=== PATIENT | male | born 1930 | race Caucasian/White ===

== ENCOUNTER 2016-11-29 04:40 | Emergency (ER) | payer MEDICARE ==
[2016-11-29] MEDS ORDERED: SODIUM CHLORIDE 0.9% 1000ML 1,000 ML ONE (04:52)
[2016-11-29] MEDS ORDERED: ONDANSETRON INJ 4 MG/2 ML VIAL ONE (04:55)
[2016-11-29] MEDS ORDERED: ONDANSETRON INJ 4 MG/2 ML VIAL IV ONE (04:55)
[2016-11-29] MEDS ORDERED: SODIUM CHLORIDE 0.9% 1000ML 1,000 ML IVS ONE ×2 (04:58→05:17)
[2016-11-29] MEDS ORDERED: MORPHINE SULFATE INJ 10 MG/ML VIAL ONE (05:01)
[2016-11-29] MEDS ORDERED: MORPHINE SULFATE INJ 10 MG/ML VIAL IV ONE ×2 (05:01→08:27)
[2016-11-29] MEDS ORDERED: NITROGLYCERIN 0.4 MG 25 EA TAB SL ONE ×2 (05:05)
[2016-11-29] MEDS ORDERED: KETOROLAC TROMETHAMINE INJ 30 MG/ML VIAL ONE (05:10)
--- NOTE | 2016-11-29 05:12 | RAD ---
Procedure: XR CHEST 1 VIEW Exam Date: 11/29/2016 Ordering Provider: Cornelia Zaldivar Clinical Indication: chest pain Comparison: None Findings: Cardiac silhouette: Enlarged Pulmonary vasculature : Central vascular congestion without wayne pulmonary edema. Mediastinal contour: Suboptimally evaluated due to patient rotation. Aortic contour: Tortuous Focal lung consolidation: Left basilar atelectasis and/or infiltrate. Pleural effusion: No large pleural effusions. Pneumothorax: None Acute bony or soft tissue abnormality: None Impression: 1. Left basilar atelectasis and/or infiltrate. Electronically signed by: Jacky Harden MD 11/29/2016 5:10 AM CDT
[2016-11-29] MEDS ORDERED: KETOROLAC TROMETHAMINE INJ 30 MG/ML VIAL IV ONE (05:23)
--- NOTE | 2016-11-29 05:29 | ED.PDOC ---
History of Present Illness - General Source: patient, RN notes reviewed, Vital Signs reviewed, EMS Exam Limitations: no limitations - History of Present Illness Initial Comments: Patient comes in via EMS with c/o the worst chest pain he has ever had in the center of his chest. He can't really give a description of the pain but it is worse with breathing. Reports pain started @ ~03:30 today and got so severe he called EMS. + SOB and nausea. Pain does go through to his back. EMS gave SLNTG X 1 but his BP dropped into the 90's so he was given Morphine 2mg IV. On arrival to the ER he reports his pain as 8/10. BP dropped to 87/55 so he was given a 1L NS bolus. BP rebounded to 100/53 and 5 minutes further into the bolus BP was 116/73. Patient c/o that pain was getting worse again and that he could not breath because the pain was so bad. He was given another 2mg of Morphine IV w/o improvement and then a second SLNTG again w/o improvement. BP dropped to 103/68 so he was given Toradol 30mg IV and pain improved, BP 110/71. He is currently resting comfortably. Patient reports he has never been to the doctor in his life, has no known medical problems and takes no medications. He did smoke for >60 years but quit 8 years ago. Later her reports he did see a doctor this past January, does not remember who, and was told to lose weight. Since then he has lost ~ 30#'s. Timing/Duration: 1-3 hours Severity/Quality: severe, other - unable to quantify Location: substernal Chest Pain Radiation: back Activities at Onset: rest Prior Chest Pain/Cardiac Workup: no prior chest pain, no prior cardiac workup Improving Factors: nothing Worsening Factors: other - deep breathing Nitro Today/Relief: 0.4 mg x 2, provided by EMS, provided by ED, no relief Aspirin Treatment Today: 81 mg x 4, provided by EMS Associated Symptoms: back pain, nausea/vomiting, shortness of breath <Cornelia Zaldivar - Last Filed: 11/29/16 07:21> <Rudolph Luong - Last Filed: 11/29/16 08:02> - General Chief Complaint: Chest Pain/TN Stated Complaint: Chest pain Time Seen by Provider: 11/29/16 05:17 - History of Present Illness Allergies/Adverse Reactions: Allergies NO KNOWN ALLERGY Allergy (Verified 11/29/16 04:44) Home Medications: Ambulatory Orders NK [NK] 11/29/16 Review of Systems - Review of Systems Constitutional: States: diaphoresis. Denies: chills, fever, malaise, weakness EENTM: States: no symptoms reported Respiratory: States: see HPI, other - pain with breathing. Denies: cough, short of breath Cardiology: States: chest pain. Denies: edema, palpitations, syncope Gastrointestinal/Abdominal: States: nausea. Denies: abdominal pain, vomiting Musculoskeletal: States: back pain Skin: States: no symptoms reported Neurological: States: no symptoms reported All other Systems: No Change from Baseline <Cornelia Zaldivar - Last Filed: 11/29/16 07:21> Past Medical History (General) - Patient Medical History Hx Seizures: No Hx Stroke: No Hx Dementia: No Hx Asthma: No Hx of COPD: No Hx Cardiac Disorders: No Hx Congestive Heart Failure: No Hx Pacemaker: No Hx Hypertension: No Hx Thyroid Disease: No Hx Diabetes: No Hx Gastroesophageal Reflux: No Hx Renal Disease: No Hx Cancer: No Hx of HIV: No Hx Hepatitis C: No Hx MRSA: No Surgical History: no surgical history - Vaccination History Hx Tetanus, Diphtheria Vaccination: No Hx Influenza Vaccination: No Hx Pneumococcal Vaccination: No Immunizations Up to Date: No - Social History Hx Tobacco Use: Yes Hx Chewing Tobacco Use: No Hx Alcohol Use: Yes Hx Substance Use: No Hx Substance Use Treatment: No Hx Depression: No Feels Threatened In Home Enviroment: No Feels Threatened In a Relationship: No Hx Physical Abuse: No Hx Emotional Abuse: No Hx Suspected Abuse: No <Cornelia Zaldivar - Last Filed: 11/29/16 07:21> Family Medical History - Family History Mother Family History: Unknown Living Status: <Cornelia Zaldivar Last Filed: 11/29/16 07:21> Physical Exam - Physical Exam General Appearance: Alert, Obvious distress, Unkempt Neck: non-tender, full range of motion, supple, normal inspection Respiratory: chest non-tender, no respiratory distress, no accessory muscle use , crackles - LLL, rales - LLL Cardiovascular/Chest: normal peripheral pulses, regular rate, rhythm, no edema, no gallop, no JVD, no murmur Peripheral Pulses: radial,right: 2+, radial,left: 2+, dorsalis pedis,right: 2+, dorsalis pedis,left: 2+ Gastrointestinal/Abdominal: normal bowel sounds, non tender, soft, no organomegaly, no pulsatile mass Extremity: non-tender, normal inspection, no pedal edema Neurologic: alert, normal mood/affect, oriented x 3 Skin Exam: normal color, warm/dry <MirandajasmyneCornelia - Last Filed: 11/29/16 07:21> Progress - Progress Progress: 11/29/16 05:38 D-Dimer >6000, will get CTA of chest. Patient still reporting CP 8/10 but appears more comfortable and is breathing better. BP 89/67. 11/29/16 05:45 Initial set of Cardiac Enzymes are normal. 11/29/16 07:23 Discussed W/ Dr. Lafleur, Cardiothoracic Surgeon @ [facility] - can't accept patient Spoke with Dr. Escobar, Cardiothorachic Surgeon @ [facility] - pt needs to go to [facility]. Spoke to Dr. Laboy, ER, who accepted patient. - Results/Orders Results/Orders: Laboratory Tests 11/29/16 11/29/16 11/29/16 04:20 04:22 06:48 WBC 9.8 RBC 4.32 L Hgb 12.6 L Hct 38.7 L MCV 89.7 MCH 29.1 MCHC 32.6 L RDW 15.1 H Plt Count 192 MPV 7.6 Absolute Neuts (auto) 5.00 Absolute Lymphs (auto) 3.20 Absolute Monos (auto) 0.80 Absolute Eos (auto) 0.40 Absolute Basos (auto) 0.20 H Neutrophils % 51.7 Lymphocytes % 33.0 Monocytes % 8.4 Eosinophils % 4.4 Basophils % 2.5 H PT 12.6 H INR 1.120 PTT (SP) 26.7 D-Dimer, Quantitative 6159 H* Sodium 143 Potassium 3.5 L Chloride 107 Carbon Dioxide 25 Anion Gap 14.5 BUN 14 Creatinine 1.01 BUN/Creatinine Ratio 13.9 Random Glucose 166 H Serum Osmolality 289.2 Calcium 8.8 Magnesium 1.9 Creatine Kinase 42 21 L D CK-MB (CK-2) 2.0 1.4 CK-MB (CK-2) % Not Reportable Not Reportable Troponin I < 0.02 < 0.02 11/29/16 07:10 WBC 12.2 H RBC 3.47 L Hgb 10.1 L Hct 31.4 L MCV 90.5 MCH 29.1 MCHC 32.1 L RDW 15.6 H Plt Count 137 MPV 7.1 L Absolute Neuts (auto) 10.20 H Absolute Lymphs (auto) 0.90 L Absolute Monos (auto) 0.90 H Absolute Eos (auto) 0.10 Absolute Basos (auto) 0.10 Neutrophils % 83.6 H Lymphocytes % 7.2 L Monocytes % 7.4 Eosinophils % 0.9 L Basophils % 0.9 PT INR PTT (SP) D-Dimer, Quantitative Sodium Potassium Chloride Carbon Dioxide Anion Gap BUN Creatinine BUN/Creatinine Ratio Random Glucose Serum Osmolality Calcium Magnesium Creatine Kinase CK-MB (CK-2) CK-MB (CK-2) % Troponin I - EKG/XRAY/CT EKG: Sinus, nonspecific ST T wave Chg Comments: L axis deviation, Rate 72 XRAY: chest - LLL infiltrate vs adelectasis per Radiologist CT Ordered: Yes - CTA Chest: Lg, leaking aneurysm @ Aortic arch w/ blood in mediast & L chest CT Interpretation Call Back: Yes - also, 7cm AAA <Cornelia Zaldivar - Last Filed: 11/29/16 07:21> - Progress Progress: 11/29/16 08:00 addendum: given solumedrol for likelihood of need for transfusion. given 1 gm of txa. will use cardene to limit bp's if needed. <Rudolph Luong - Last Filed: 11/29/16 08:02> Departure - Departure Time of Disposition: 07:28 <Cornelia Zaldivar - Last Filed: 11/29/16 07:21> <Rudolph Luong - Last Filed: 11/29/16 08:02> - Departure Clinical Impression: Abdominal aortic aneurysm (AAA) >39 mm diameter Aortic aneurysm Qualifiers: Aortic location: thoracic aorta Presence of rupture: ruptured Qualified Code(s) : I71.1 - Thoracic aortic aneurysm, ruptured Disposition: Transfer to Hospital Condition: Serious Departure Forms: ED Discharge - Pt. Copy, Patient Portal Self Enrollment Referrals: Kirk Montelongo III, MD [Primary Care Provider] - 1-2 Weeks Home Medications: Ambulatory Orders NK [NK] 11/29/16 Critical Care Note - Critical Care Note Total Time (mins): 40 - Was at patient bedside attemting to control chest pain and maintain his BP. Comments: On arrival to the ER he reports his pain as 8/10. BP dropped to 87/55 so he was given a 1L NS bolus. BP rebounded to 100/53 and 5 minutes further into the bolus BP was 116/73. Patient c/o that pain was getting worse again and that he could not breath because the pain was so bad. He was given another 2mg of Morphine IV w/o improvement and then a second SLNTG again w/o improvement. BP dropped to 103/68 so he was given Toradol 30mg IV and pain improved, BP 110/71. He is currently resting comfortably. <Cornelia Zaldivar - Last Filed: 11/29/16 07:21> Transfer to Outside Facility - Transfer Information Accepting Provider:: Dr. Laboy Accepting Facility: [facility] Reason for Transfer: specialized care not available <Cornelia Zaldivar - Last Filed: 11/29/16 07:21>
--- NOTE | 2016-11-29 07:21 | CT ---
Procedure: CT CHEST ANGIOGRAPHY WITH IV CONTRAST Exam Date: 11/29/2016 Ordering Provider: Cornelia Zaldivar Clinical Indication: Chest pain/ SOB/ elevated D-dimer Comparison: None Technique: Using a multislice scanner, sequential axial imaging was obtained in the thorax from the level of the thoracic inlet through the lung bases after intravenous contrast administration. The contrast bolus was timed to evaluate the pulmonary arteries for thrombus. MIP coronal and sagittal reformatted images were obtained. This exam was performed according to our departmental dose optimization program which includes use of automated exposure control, adjustment of the mA and/or kV according to patient size and/or use of iterative reconstruction technique. Findings: Just distal to the origin of the left subclavian artery there is a 1.7 cm saccular aneurysm. 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 Mediastinal hematoma exerts mass effect on the left atrium and left pulmonary veins. There are no pulmonary emboli. Lungs and large airways: Bibasilar atelectasis, left greater than right. Pleura: Small to moderate sized hyperdense pleural effusion on the left likely representing blood products. Small right pleural effusion. IMPRESSION: 1. 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 2. There is also a 6.8 cm abdominal aortic aneurysm. Surgical consultation is recommended. 3. Left pleural effusion containing blood products.. These findings were discussed with Dr. Cornelia Zaldivar at 0645 on 11/29/2016 Electronically signed by: Jacky Harden MD 11/29/2016 7:20 AM CDT
[2016-11-29] MEDS ORDERED: methylPREDNISolone SODIUM SUC 40 MG/ML VIAL IV ONE (07:40)
[2016-11-29] MEDS ORDERED: TRANEXAMIC ACID 1,000 MG/10 ML VIAL IV ONE (07:47)
[2016-11-29] MEDS ORDERED: SODIUM CHLORIDE 0.9% 250ML 250 ML ONE (07:51)
[2016-11-29] MEDS ORDERED: niCARdipine HCL 2.5 MG/ML AMP IVPB ONE (07:51)
[2016-11-29] MEDS ORDERED: niCARdipine HCL 25 MG in SODIUM CHLORIDE 0.9% 250ML 240 ML IVPB SCH (08:00)
[2016-11-29] MEDS ORDERED: LACTATED RINGERS 1,000 ML IVS PRN (09:01)
[2016-11-29 09:23] VITALS: BP 110/86; TEMP 97; O2SAT 90
== END 2016-11-29 09:19 | disposition short-term general hospital (02) ==
LOC: ER 04:40
DX: I71.1 Thoracic aortic aneurysm, ruptured (principal); I71.4 Abdominal aortic aneurysm, without rupture; R07.9 Chest pain, unspecified; Z87.891 Personal history of nicotine dependence
CPT/HCPCS: 36415; 71010; 71275; 80048; 82550; 82553; 84484; 85025; 85379; 85610; 85730; 86922; 93005; J1030; J1885; J2270; J2405; J7030; J7050; P9016